=== PATIENT | female | born 1955 | race Caucasian/White ===

== ENCOUNTER 2024-06-10 22:53 | Observation (INO) | payer MEDICARE, BC, SELFPAY ==
[2024-06-10 22:54] VITALS: BP 178/66; PULSE 89; RESP 16; TEMP 36.1; O2SAT 99; BMI 24.8
--- NOTE | 2024-06-10 23:01 | ED_ITS ---
HPI - Fall General Time Seen by Provider: 23:02 Date Seen: 06/10/24 Chief Complaint: Fall/Minor Trauma Stated Complaint: fall Time Seen by Provider: 06/10/24 23:01 Source: patient, family, RN notes reviewed and old records reviewed Mode of arrival: ambulatory Limitations: no limitations History of Present Illness HPI Narrative: Mago is a very pleasant 69-year-old female previously healthy with a history of occasional vertigo who comes to the emergency room [facility] for evaluation regarding a fall. Mago was noted to have been with her jil. He states that he went to plug in his phone and she went to the bathroom any suddenly heard a fall. Notes that she hit the back of her head. Following that she has been vomiting and preferring to keep her eyes closed. Mago is answering questions with yes or no and seems to be appropriate but is unable to elaborate on what she is feeling right now. She denies any other pain except for the pain in the back of her head where she hit the ground. She denies any neck pain. Mago's Yovany tells me that she has occasionally had problems with vertigo but does not know if that is the problem tonight. Mago denies numbness or tingling. She did have a few alcoholic drinks jil. She had given blood earlier in the day. Mago denies chest pain shortness of breath, abdominal pain. She does feel better after vomiting. I do call a TT a based on her post fall symptoms. Related Data Home Medications ?Medication ?Instructions ?Recorded ?Confirmed alfalfa 250 mg tablet 250 mg PO QDAY 06/07/22 06/10/24 cholecalciferol (vitamin D3) 10 10 mcg PO QDAY 06/07/22 06/10/24 mcg (400 unit) capsule vitamin B complex 1 cap PO QDAY 06/07/22 06/10/24 zinc sulfate 50 mg zinc (220 mg) 50 mg PO QDAY 06/07/22 06/10/24 capsule (Orazinc) Allergies Allergy/AdvReac Type Severity Reaction Status Date / Time Sulfa (Sulfonamide Allergy Intermediate Hives, Rash Verified 06/10/24 23:00 Antibiotics) tetracycline Allergy Intermediate Hives, Rash Verified 06/10/24 23:00 Review of Systems Status of ROS: Reports: unobtainable due to mental status Narrative: Basic review of systems is negative. No complaints of arm back or leg pain. Const: Denies: fever, chills or fatigue Endo: Denies: fatigue PFSH [facility] Social History Smoking Status: Never smoker Do you use any of these nicotine containing products: None Second hand tobacco smoke exposure: No How often do you have a drink containing alcohol: never AUDIT-C Alcohol total score: 0 Non-prescribed substance use: denies use service: No Exam Narrative: Exam Narrative: Airway is open Breathing is easy Circulation no obvious bleeding Disability-GCS is 14 as she does not appear to be her normal interactive self. She is abating commands and answering in short sentences. I do have Mago open her eyes. Her pupils are small at approximately 1.5 mm and are not reacting at this time. Her EOM is full. Head is with a soft tissue swelling on the occipital area. TMs bilaterally with no fluid line. Oral cavity with moist mucous membranes. The nurses are cleaning her up as she has has vomit on her blankets. Abdomen is soft nontender. Heart with regular rate and rhythm and lungs are clear. She is able to move her extremities. Sensation does appear to be intact. Palpation on her back does not yield any tenderness. No nystagmus. Const: Vital Signs, click to edit/add: Vital Signs - 24 hr 06/10/24 22:54 06/10/24 23:16 06/10/24 23:17 Temperature 96.9 F L Pulse Rate 82 78 Pulse Rate [Pulse Oximeter] 89 Respiratory Rate 16 Blood Pressure 153/98 H Blood Pressure [Ri ght Upper Arm] 178/66 H Pulse Oximetry 99 97 98 Oxygen Delivery Me thod Room Air 06/10/24 23:48 06/10/24 23:49 06/11/24 00:00 Temperature Pulse Rate 93 92 86 Pulse Rate [Pulse Oximeter] Respiratory Rate Blood Pressure Blood Pressure [Ri ght Upper Arm] Pulse Oximetry 100 100 100 Oxygen Delivery Me thod 06/11/24 00:05 06/11/24 00:15 06/11/24 00:30 Temperature Pulse Rate 84 85 82 Pulse Rate [Pulse Oximeter] Respiratory Rate Blood Pressure Blood Pressure [Ri ght Upper Arm] Pulse Oximetry 99 98 99 Oxygen Delivery Me thod 06/11/24 00:45 06/11/24 01:07 06/11/24 01:09 Temperature Pulse Rate 83 89 83 Pulse Rate [Pulse Oximeter] Respiratory Rate Blood Pressure 132/97 H Blood Pressure [Ri ght Upper Arm] Pulse Oximetry 99 97 97 Oxygen Delivery Me thod 06/11/24 01:15 06/11/24 01:30 Temperature Pulse Rate 86 90 Pulse Rate [Pulse Oximeter] Respiratory Rate Blood Pressure Blood Pressure [Ri ght Upper Arm] Pulse Oximetry 98 97 [facility] provider has reviewed patient's vital signs: yes Course Course ED Course: Differential diagnosis includes but is not limited to orthostatic hypotension, cardiac arrhythmia, stroke, closed head injury, subarachnoid bleed. Will place IV give 1 L of normal saline as well as Zofran 4 mg IV. Patient will have CT of the head neck along with angio of the head neck as she has what appears to be persistent dizziness. Will check CBC, comprehensive, CRP, troponin, magnesium as well. Reevaluation(s) Reevaluation #1: Patient is feeling better and has not had any further vomiting. She is thirsty. Head and cervical spine without evidence of injury. EKG is reassuring with sinus rhythm. No evidence of arrhythmia on the heart monitor. Potassium is low at 3.2. Hemoglobin is 10.7 which is a significant change from the hemoglobin prior to giving blood of greater than 14. Will have redraw of hemoglobin to ensure correct value. Reevaluation #2: Patient is much more interactive and seems to be back to her usual personality. She is receptive to Tylenol 650 mg p.o. for headache. Potassium 50 mEq is also brought for her. Do realize that she had just recently been nauseated so she may sit this slowly. Vital Signs Vital signs: Initial Vital Signs Temperature 96.9 F L 06/10/24 22:54 Temperature Source Temporal Artery Scan 06/10/24 22:54 Pulse Rate 89 06/10/24 22:54 Respiratory Rate 16 06/10/24 22:54 Blood Pressure 178/66 H 06/10/24 22:54 Blood Pressure Mean 103 06/10/24 22:54 Blood Pressure Position Supine 06/10/24 22:54 Pulse Oximetry 99 06/10/24 22:54 Oxygen Delivery Method Room Air 06/10/24 22:54 Vital Signs Temperature 96.9 F L 06/10/24 22:54 Pulse Rate 89 06/10/24 22:54 Respiratory Rate 16 06/10/24 22:54 Blood Pressure 178/66 H 06/10/24 22:54 Pulse Oximetry 99 06/10/24 22:54 Oxygen Delivery Method Room Air 06/10/24 22:54 Temperature 96.9 F L 06/10/24 22:54 Pulse Rate 90 06/11/24 01:30 Respiratory Rate 16 06/10/24 22:54 Blood Pressure 132/97 H 06/11/24 01:09 Pulse Oximetry 97 06/11/24 01:30 Oxygen Delivery Method Room Air 06/10/24 22:54 Medications Administered Medications: Generic Name Dose Route Start Last Admin Trade Name Freq PRN Reason Stop Dose Admin Acetaminophen 650 mg 06/11/24 01:57 06/11/24 02:08 Acetaminophen 325 Mg Tablet PO 06/11/24 01:58 650 mg ONCE ONE Administration Potassium Bicarbonate 50 meq 06/11/24 01:57 06/11/24 02:08 Potassium Bicarb 25 Meq Effervescent Tab PO 06/11/24 01:58 50 meq ONCE ONE Administration Discontinued Medications Generic Name Dose Route Start Last Admin Trade Name Freq PRN Reason Stop Dose Admin Sodium Chloride 1,000 mls @ 1,000 mls/hr 06/10/24 23:13 06/11/24 01:10 0.9 % Sodium Chloride 1000 Ml IV 06/11/24 00:12 Infused .Q1H SKYLAR Infusion Ondansetron HCl 4 mg 06/10/24 23:11 06/10/24 23:28 Ondansetron 2 Mg/Ml Inj IVP 06/10/24 23:12 4 mg ONCE ONE Administration MDM - Fall MDM Narrative Medical decision making narrative: 1. Syncope-patient notes feeling lightheaded prior to this happening but then has no recollection of the fall after the fall, ambulance arrival. Her notes no reports of seizure-like activity. She was unresponsive for a period of time after the fall. She was not very interactive upon her initial arrival and had been vomiting. She is now back to her old self but appearing very fatigued. Patient had had some alcoholic drinks but alcohol here in the ER is only 0.02. She has not been ill. She really has no urinary tract symptoms although her urine does suggest the possibility of UTI. 2. Anemia-hemoglobin 10.7 with repeat value pending. According to Mago lozoya hemoglobin had been greater than 14 prior to giving blood. There was no process for double bagging a today. She has not had problems with giving blood in the past. Repeat pending 3. Concussion-patient noted to have headache. Given her appearance in the ED which is at least a 25-30 minute ride from her home near [place] I do believe she has suffered a concussion. I recommend no work this week. 4. Disposition-admit under the care of [facility] hospitalist. Medical Records Attestation: I reviewed the patient's medical records. Lab Data Attestation: I reviewed the patient's lab results. Labs: Lab Results 06/10/24 06/10/24 06/11/24 Range/Units 23:11 23:15 01:03 WBC 9.93 (4.50-11.00) K/uL RBC 4.16 (4.00-5.20) m/uL Hgb 10.7 L (12.0-16.0) gm/dL Hct 33.6 (33.0-51.0) % MCV 81 (80-100) fL MCH 26 (26-34) pg MCHC 32 (32-36) gm/dL RDW Coeff of Ronda 14.7 (11.5-15.5) % Plt Count 505 H (140-440) K/uL Neut % (Auto) 54.1 (42.0-72.0) % Lymph % (Auto) 37.4 (20-44) % Mcdowell % (Auto) 5.8 (0.0-11.0) % Eos % (Auto) 1.9 (0.0-7.0) % Baso % (Auto) 0.7 (0.0-3.0) % Neut # (Auto) 5.37 (1.7-7.0) K/uL Lymph # (Auto) 3.71 H (0.90-2.90) K/uL Mcdowell # (Auto) 0.60 (0.00-0.90) K/UL Eos # (Auto) 0.19 (0.00-0.50) K/uL Baso # (Auto) 0.07 (0.00-0.30) K/uL Abs Immat Gran (auto) 0.01 (0.00-0.30) K/uL Imm/Tot Granulo (auto) 0.1 % Sodium 135 (135-149) mmol/L Potassium 3.2 L (3.6-5.1) mmol/L Chloride 103 (96-114) mmol/L Carbon Dioxide 21 (20-32) mmol/L Anion Gap 11 (7-15) mEq/L BUN 14 (7-30) mg/dL Creatinine 0.7 (0.5-1.5) mg/dL Estimated Creat Clear 43.30 Estimated GFR 93 ml/min Glucose 115 (60-115) mg/dL Calcium 8.9 (8.4-10.6) mg/dL Magnesium 2.0 (1.5-2.6) mg/dL Total Bilirubin 0.7 (0.1-1.5) mg/dL AST 22 (12-35) U/L ALT 15 (4-35) U/L Alkaline Phosphatase 80 (40-150) U/L C-Reactive Protein < 0.5 L (0.5-1.0) mg/dL Total Protein 6.7 (6.0-8.3) g/dL Albumin 4.2 (3.3-5.0) g/dL Urine Color Yellow (Yellow) Urine Appearance Clear (Clear) Urine pH 7.0 (5.0-8.5) Ur Specific [place] 1.010 (1.000-1.030) Urine Protein Negative (Negative) Urine Glucose (UA) Negative (Negative) Urine Ketones Negative (Negative) Urine Blood Negative (Negative) Urine Nitrite Negative (Negative) Urine Bilirubin Negative (Negative) Urine Urobilinogen 0.2 (0.2-1.0) Ur Leukocyte Esterase 1+ A (Negative) Urine RBC 0-2 (0-2) Urine WBC 5-10 A (0-5) Ur Squamous Epith Cells Few (None-Few) Urine Bacteria Few A (None) Ethyl Alcohol 0.02 (0.01-0.03) % SARS-CoV-2 (PCR) Negative SARS-CoV-2 (Negative) POC Troponin I 0.00 L (0.01-0.04) ng/ml Imaging Data CT scan - head: Attestation: I have reviewed the pertinent imaging results. My impression: No evidence of acute bleed. Radiologist's impression: No CT evidence of acute intracranial hemorrhage, territorial infarct, hydrocephalus, or mass effect. Brain parenchymal volume is grossly within normal limits for patient`s stated age. Prominent right parietal soft tissue hematoma without associated calvarial fracture. Paranasal sinuses and mastoid air cells are grossly well ventilated. IMPRESSION: 1. No acute intracranial abnormality. 2. Prominent right parietal scalp hematoma without underlying calvarial frac ture. Cervical spine CT: Attestation: I have reviewed the pertinent imaging results. My impression: I do not note any acute findings Radiologist's impression: Vertebrae: No acute fracture or suspicious osseous lesion. The cervical vertebral bodies maintain their normal heights with slight reversal of the cervical lordosis. Mild retrolisthesis is present at C6-C7. Discs and facet joints: Multilevel degenerative disc disease with multilevel disc space height loss and partial ankylosis across C5-C6. Disc bulge contributing to probable moderate canal stenosis at C6-C7. Multilevel facet arthropathy most prominent at C3-C4. Extraspinal findings: Prevertebral soft tissues, visualized airway, and visualized lungs are unremarkable. IMPRESSION: 1. No acute cervical spine fracture. 2. Multilevel spondylosis and degenerative disc disease, as above. Chest x-ray: Attestation: I have reviewed the pertinent imaging results. My impression: No obvious abnormality Radiologist's impression: Cardiovasculature and mediastinum: Heart size is normal. Unremarkable mediastinum. Lungs and pleural spaces: Lungs are clear. No sign of infiltrate or mass. No sign of pleural effusion. No pneumothorax. Bones and soft tissues: No significant findings. IMPRESSION: No acute cardiopulmonary abnormality. ECG Data Attestation: I personally reviewed and interpreted this ECG as follows: ECG interpretation date: 06/10/24 Interpretation: EKG by my read shows sinus rhythm at a rate of [address] or T-wave changes. QT and ND intervals within normal limits. Discharge Plan Discharge Clinical Impression: Syncope, Concussion, Acute hypokalemia Patient Disposition: Admitted As Observation Condition: Improved
--- NOTE | 2024-06-10 23:11 | CRLHL7_ITS ---
For Patients: As a result of the Cures Act, medical imaging exams and procedure reports are released immediately into your electronic medical record. You may view this report before your referring provider. If you have questions, please contact your health care provider. INDICATION: Fall. TECHNIQUE: CT cervical spine without contrast. COMPARISON: None. FINDINGS: Vertebrae: No acute fracture or suspicious osseous lesion. The cervical vertebral bodies maintain their normal heights with slight reversal of the cervical lordosis. Mild retrolisthesis is present at C6-C7. Discs and facet joints: Multilevel degenerative disc disease with multilevel disc space height loss and partial ankylosis across C5-C6. Disc bulge contributing to probable moderate canal stenosis at C6-C7. Multilevel facet arthropathy most prominent at C3-C4. Extraspinal findings: Prevertebral soft tissues, visualized airway, and visualized lungs are unremarkable. IMPRESSION: 1. No acute cervical spine fracture. 2. Multilevel spondylosis and degenerative disc disease, as above. Please note that all CT scans at this facility use dose modulation, iterative reconstruction, and/or weight-based dosing when appropriate to reduce radiation dose to as low as reasonably achievable. Dictated by Harmeet Hayden MD @ 06/11/2024 12:50:28 AM (Electronically Signed)
--- NOTE | 2024-06-10 23:11 | CRLHL7_ITS ---
For Patients: As a result of the Century Cures Act, medical imaging exams and procedure reports are released immediately into your electronic medical record. You may view this report before your referring provider. If you have questions, please contact your health care provider. INDICATION: Fall with vomiting. TECHNIQUE: CT head without contrast. COMPARISON: None. FINDINGS: No CT evidence of acute intracranial hemorrhage, territorial infarct, hydrocephalus, or mass effect. Brain parenchymal volume is grossly within normal limits for patient`s stated age. Prominent right parietal soft tissue hematoma without associated calvarial fracture. Paranasal sinuses and mastoid air cells are grossly well ventilated. IMPRESSION: 1. No acute intracranial abnormality. 2. Prominent right parietal scalp hematoma without underlying calvarial fracture. Please note that all CT scans at this facility use dose modulation, iterative reconstruction, and/or weight-based dosing when appropriate to reduce radiation dose to as low as reasonably achievable. Dictated by Harmeet Hayden MD @ 06/11/2024 12:36:01 AM (Electronically Signed)
--- NOTE | 2024-06-10 23:13 | CRLHL7_ITS ---
For Patients: As a result of the Century Cures Act, medical imaging exams and procedure reports are released immediately into your electronic medical record. You may view this report before your referring provider. If you have questions, please contact your health care provider. INDICATION: Syncope. TECHNIQUE: Chest 1 views. COMPARISON: None. FINDINGS: Cardiovasculature and mediastinum: Heart size is normal. Unremarkable mediastinum. Lungs and pleural spaces: Lungs are clear. No sign of infiltrate or mass. No sign of pleural effusion. No pneumothorax. Bones and soft tissues: No significant findings. IMPRESSION: No acute cardiopulmonary abnormality. Dictated by Harmeet Hayden MD @ 06/11/2024 12:51:38 AM (Electronically Signed)
--- NOTE | 2024-06-10 23:13 | CRLHL7_ITS ---
For Patients: As a result of the Century Cures Act, medical imaging exams and procedure reports are released immediately into your electronic medical record. You may view this report before your referring provider. If you have questions, please contact your health care provider. INDICATION: Syncope, vertigo. TECHNIQUE: CTA head with contrast bolus tracking, 3D angiographic rendering using maximum intensity projection (MIP) and images permanently archived. FINDINGS: There is minor intracranial atherosclerotic disease. There is normal opacification of the intracranial vasculature. There is no large vessel occlusion. No aneurysm is identified. IMPRESSION: No acute intracranial abnormality at CTA. Please note that all CT scans at this facility use dose modulation, iterative reconstruction, and/or weight-based dosing when appropriate to reduce radiation dose to as low as reasonably achievable. Dictated by Sergey Hollis MD @ 06/11/2024 10:48:04 AM (Electronically Signed)
--- NOTE | 2024-06-10 23:13 | CRLHL7_ITS ---
For Patients: As a result of the Century Cures Act, medical imaging exams and procedure reports are released immediately into your electronic medical record. You may view this report before your referring provider. If you have questions, please contact your health care provider. INDICATION: Syncope, vertigo. TECHNIQUE: CTA neck with contrast bolus tracking, 3D angiographic rendering using maximum intensity projection (MIP) and images permanently archived. FINDINGS: There is minor carotid atherosclerosis. There is no significant carotid artery stenosis or dissection. There is no significant vertebral artery stenosis or dissection. The soft tissues of the neck are within normal limits. The cervical spine is in normal alignment. Degenerative changes are noted in the cervical spine. The C5-6 vertebrae are fused. IMPRESSION: No significant carotid or vertebral artery stenosis or dissection. Please note that all CT scans at this facility use dose modulation, iterative reconstruction, and/or weight-based dosing when appropriate to reduce radiation dose to as low as reasonably achievable. Dictated by Sergey Hollis MD @ 06/11/2024 10:49:55 AM (Electronically Signed)
[2024-06-10 23:16] VITALS: PULSE 82; O2SAT 97
[2024-06-10 23:17] VITALS: BP 153/98; PULSE 78; O2SAT 98
[2024-06-10] MEDS: ONDANSETRON 2 MG/ML inj 4 MG IVP (23:28)
[2024-06-10 23:34] LABS: Basophils Absolute Auto 0.07 K/uL (0.00-0.30); Basophils Percent Auto 0.7 % (0.0-3.0); Eosinophils Absolute Auto 0.19 K/uL (0.00-0.50); Eosinophils Percent Auto 1.9 % (0.0-7.0); Hematocrit 33.6 % (33.0-51.0); Hemoglobin* 10.7 gm/dL (12.0-16.0); Immature Granulocytes Abs Auto 0.01 K/uL (0.00-0.30); Immature Granulocytes Pct Auto 0.1 %; Lymphocytes Absolute Auto 3.71 K/uL (0.90-2.90); Lymphocytes Percent Auto 37.4 % (20-44); Mean Corpuscular HGB Conc 32 gm/dL (32-36); Mean Corpuscular Hemoglobin 26 pg (26-34); Mean Corpuscular Volume 81 fL (80-100); Monocytes Percent Auto 5.8 % (0.0-11.0); Neutrophils Absolute Auto 5.37 K/uL (1.7-7.0); Neutrophils Percent Auto 54.1 % (42.0-72.0); Platelet Count* 505 K/uL (140-440); RDW Coefficient of Variation % 14.7 % (11.5-15.5); Red Blood Count 4.16 m/uL (4.00-5.20); White Blood Count* 9.93 K/uL (4.50-11.00)
[2024-06-10 23:37] LABS: Albumin* 4.2 g/dL (3.3-5.0); Chloride* 103 mmol/L (96-114); Sodium* 135 mmol/L (135-149)
[2024-06-10 23:38] LABS: Potassium* 3.2 mmol/L (3.6-5.1); Slide Review Reflex No
[2024-06-10 23:40] LABS: Alkaline Phosphatase* 80 U/L (40-150); Anion Gap 11 mEq/L (7-15); Aspartate Amino Transferase* 22 U/L (12-35); Bilirubin Total* 0.7 mg/dL (0.1-1.5); Carbon Dioxide* 21 mmol/L (20-32); Creatinine* 0.7 mg/dL (0.5-1.5); Estimated Glomerular Filt Rate 93 ml/min; Total Protein* 6.7 g/dL (6.0-8.3)
[2024-06-10 23:41] LABS: Alanine Aminotransferase* 15 U/L (4-35); Blood Urea Nitrogen* 14 mg/dL (7-30); Calcium* 8.9 mg/dL (8.4-10.6); Glucose* 115 mg/dL (60-115)
[2024-06-10 23:45] LABS: C Reactive Protein* < 0.5 mg/dL (0.5-1.0)
[2024-06-10] MEDS: 0.9 % SODIUM CHLORIDE 1000 ml 1,000 ML IV (23:45)
[2024-06-10 23:48] VITALS: PULSE 93; O2SAT 100
[2024-06-10 23:49] VITALS: PULSE 92; O2SAT 100
[2024-06-10 23:55] LABS: Ethanol* 0.02 % (0.01-0.03); SARS PCR* Negative SARS-CoV-2 (Negative)
[2024-06-11] VITALS (16 sets, daily range): BP systolic 132–169; BP diastolic 70–97; PULSE 72–90; RESP 16–18; TEMP 36.6–36.8; O2SAT 95–100
[2024-06-11 01:11] LABS: Appearance Urine Clear (Clear); Bilirubin Urine Negative (Negative); Blood Urine Negative (Negative); Color Urine Yellow (Yellow); Glucose Urine Negative (Negative); Ketones Urine Negative (Negative); Leukocyte Esterase Urine 1+ (Negative); Nitrite Urine Negative (Negative); Protein Urine Negative (Negative); Urobilinogen Urine 0.2 (0.2-1.0)
[2024-06-11 01:21] LABS: Bacteria Urine Few; RBC Urine 0-2 (0-2); Squamous Epithelial Cell Urine Few (None-Few)
[2024-06-11] MEDS: POTASSIUM BICARB 25 MEQ EFFERVESCENT TAB 50 MEQ PO (02:08)
[2024-06-11] MEDS: ACETAMINOPHEN 325 MG TABLET 650 MG PO (02:08)
[2024-06-11 02:14] LABS: Hemoglobin* 10.3 gm/dL (12.0-16.0)
[2024-06-11] MEDS: 0.9 % SODIUM CHLORIDE 1000 ml 1,000 ML 125 ML IV (03:58)
--- NOTE | 2024-06-11 06:11 | W.PM.THH&P_ITS ---
Telehealth- H&P: HPI History of Present Illness Date Seen: 06/11/24 Chief complaint: fall Narrative: Mago Samson is seen as an Interactive Telehealth visit. 69-year-old female who has no past medical history presents the hospital after syncope. Patient earlier donated blood. Patient stated that after she donated blood she did not feel the same. She felt weak and lightheaded. Patient denies chest pain. Patient denies any nausea vomiting. While she was in her bathroom, she lost consciousness and hit her head on the side of the tub. Patient's tried to wake her up, the patient did not wake up. She was unresponsive. EMS was contacted. When EMS arrived, the patient still was unresponsive. She is hemodynamically stable. Patient was brought to the emergency room. While en route, she became nauseous and was arousable. She awoke. In the ER, she underwent CT of her head which showed no acute intracranial abnormality but a prominent right parietal scalp hematoma without any skull fracture. Chest x-ray was normal and did not show any acute pulmonary abnormality. Patient's EKG is negative. Blood pressure was 154/83 pulse is 75. Respiratory rate was 18. Afebrile, 96% on room air. Patient did undergo CT of her head. Official report is pending at the time of evaluation. Pending extensive discussion with the patient. Patient did not have any postictal phase. Patient did not bite her tongue. There was no concerns for any bladder or bowel incontinence. Review of Systems Status of ROS: Reports: 10 or more systems reviewed and unremarkable except as noted in History and below Const: Denies: fever or chills Eyes: Denies: change in vision or blurry vision Cardio: Reports: lightheadedness; Denies: chest pain, palpitations, edema, swelling of feet/ankles or shortness of breath with exertion Resp: Denies: shortness of breath GI: Denies: abdominal pain Musculo: Denies: back pain Neuro: Reports: headache and dizziness [facility] Social History What is your current living situation?: I presently have a place to live Problems where you live: no known problems Problems where you live details: none In the past 12 months, utilities in danger of being shut off: no In past 12 months, lack of transportation kept you from medical appts, meetings, work, or getting things needed for daily living: no In the past 12 mos, have been you worried that your food would run out before you had money to buy more?: never true In the past 12 mos, the food you bought just didn't last and you didn't have money to buy more?: never true Smoking Status: Never smoker Do you use any of these nicotine containing products: None Second hand tobacco smoke exposure: No How often do you have a drink containing alcohol: 4 or more times a week Alcohol type: beer How many standard drinks containing alcohol do you have on a typical day: 3 or 4 AUDIT-C Alcohol total score: 5 Non-prescribed substance use: denies use Caffeine: No How often does anyone, including family, friends and others, physically hurt you : never How often does anyone, including family, friends and others, insult or talk down to you: never How often does anyone, including family, friends and others, threaten you with harm: never How often does anyone, including family, friends and others, scream or curse at you: never service: No Meds Home Medications and Allergies Home Medications ?Medication ?Instructions ?Recorded ?Confirmed ?Type alfalfa 250 mg tablet 250 mg PO QDAY 06/07/22 06/10/24 History cholecalciferol (vitamin D3) 10 10 mcg PO QDAY 06/07/22 06/10/24 History mcg (400 unit) capsule vitamin B complex 1 cap PO QDAY 06/07/22 06/10/24 History zinc sulfate 50 mg zinc (220 mg) 50 mg PO QDAY 06/07/22 06/10/24 History capsule (Orazinc) Allergies Allergy/AdvReac Type Severity Reaction Status Date / Time Sulfa (Sulfonamide Allergy Intermediate Hives, Rash Verified 06/11/24 04:29 Antibiotics) tetracycline Allergy Intermediate Hives, Rash Verified 06/11/24 04:29 Exam Narrative Exam Narrative: Physical Exam GENERAL: ?vital signs reviewed, well developed and nourished, in no distress HEENT: pupils are equal round and reactive to light, extraocular movements are grossly within normal limits and oral mucosa is moist. NECK: Supple without lymphadenopathy or thyromegaly according to nursing staff examination observation HEART: Regular rate and rhythm without any rubs, murmurs, or gallops. LUNGS: Clear to auscultation bilaterally with good air movement throughout ABDOMEN: Observation from nurse assisted exam, abdomen appears soft, nontender, and nondistended with Positive bowel sounds noted. EXTREMITIES: Strength and sensation is observed to be grossly within normal limits in the upper and lower extremities.? No focal strength deficit is observed. SKIN:? Observed warm and dry with color normal Const Vital Signs, click to edit/add: Vital Signs - 24 hr 06/10/24 22:54 06/10/24 23:16 06/10/24 23:17 Temperature 96.9 F L Pulse Rate 82 78 Pulse Rate [Pulse Oximeter] 89 Pulse Rate [Right Pulse Oximeter] Respiratory Rate 16 Blood Pressure 153/98 H Blood Pressure [Right Arm] Blood Pressure [Right Upper Arm] 178/66 H Pulse Oximetry 99 97 98 Oxygen Delivery Method Room Air 06/10/24 23:48 06/10/24 23:49 06/11/24 00:00 Temperature Pulse Rate 93 92 86 Pulse Rate [Pulse Oximeter] Pulse Rate [Right Pulse Oximeter] Respiratory Rate Blood Pressure Blood Pressure [Right Arm] Blood Pressure [Right Upper Arm] Pulse Oximetry 100 100 100 Oxygen Delivery Method 06/11/24 00:05 06/11/24 00:15 06/11/24 00:30 Temperature Pulse Rate 84 85 82 Pulse Rate [Pulse Oximeter] Pulse Rate [Right Pulse Oximeter] Respiratory Rate Blood Pressure Blood Pressure [Right Arm] Blood Pressure [Right Upper Arm] Pulse Oximetry 99 98 99 Oxygen Delivery Method 06/11/24 00:45 06/11/24 01:07 06/11/24 01:09 Temperature Pulse Rate 83 89 83 Pulse Rate [Pulse Oximeter] Pulse Rate [Right Pulse Oximeter] Respiratory Rate Blood Pressure 132/97 H Blood Pressure [Right Arm] Blood Pressure [Right Upper Arm] Pulse Oximetry 99 97 97 Oxygen Delivery Method 06/11/24 01:15 06/11/24 01:30 06/11/24 02:45 Temperature 98.2 F Pulse Rate 86 90 Pulse Rate [Pulse Oximeter] Pulse Rate [Right Pulse Oximeter] Respiratory Rate 16 Blood Pressure Blood Pressure [Right Arm] 169/90 H Blood Pressure [Right Upper Arm] Pulse Oximetry 98 97 95 Oxygen Delivery Method Room Air 06/11/24 03:20 06/11/24 03:23 06/11/24 04:10 Temperature 98.2 F Pulse Rate 75 Pulse Rate [Pulse Oximeter] Pulse Rate [Right Pulse Oximeter] 75 Respiratory Rate 18 Blood Pressure Blood Pressure [Right Arm] 154/88 H Blood Pressure [Right Upper Arm] Pulse Oximetry 97 96 Oxygen Delivery Method Room Air Room Air Hospitalist - H&P: Result Labs Labs: Short CBC 06/10/24 06/11/24 Range/Units 23:15 02:05 WBC 9.93 (4.50-11.00) K/uL Hgb 10.7 L 10.3 L (12.0-16.0) gm/dL Hct 33.6 (33.0-51.0) % Plt Count 505 H (140-440) K/uL BMP 06/10/24 23:15 Sodium 135 Potassium 3.2 L Chloride 103 Carbon Dioxide 21 BUN 14 Creatinine 0.7 Glucose 115 Calcium 8.9 Liver Function 06/10/24 Range/Units 23:15 Total Bilirubin 0.7 (0.1-1.5) mg/dL AST 22 (12-35) U/L ALT 15 (4-35) U/L Alkaline Phosphatase 80 (40-150) U/L Albumin 4.2 (3.3-5.0) g/dL Urine 06/11/24 Range/Units 01:03 Urine Color Yellow (Yellow) Urine Appearance Clear (Clear) Urine pH 7.0 (5.0-8.5) Ur Specific [place] 1.010 (1.000-1.030) Urine Protein Negative (Negative) Urine Glucose (UA) Negative (Negative) Assessment and Plan Assessment and plan (1) Concussion: Status: Acute (2) Syncope: Status: Acute Plan Assessment plan Syncope this patient has syncope which he would assume would be most likely associate with hypovolemia. She just donated a pint of blood earlier in the day. She attributed feeling weak afterwards. Her syncopal episode likely was related to hypovolemia associated with that. After fluid resuscitation she felt a lot better. However she is 69 years old and although she does not have any risk factors for coronary artery disease, the age itself is a risk factor. Therefore I will order an echocardiogram, EKG, labs in the a.m. Continue telemetry. Postconcussive syndrome: Patient had markedly abnormal experience of syncope after she hit her head on the tub. She had associated nausea and headache. She has hematoma. I suspect she likely will have postconcussive syndrome. Treatment will include Tylenol. If she has recurrent episodes of nausea, she could try a tricyclic antidepressant for a period of time. Telehealth Visit Today's History and Physical is provided via interactive telehealth by Dr. Danilo Flores MD. Patient is located at [facility]. Provider is located at [facility]. Nursing staff assisted with the patient's examination. The visit being done today meets criteria for a telehealth visit and the patient or patient's parent and/or gaurdian is aware the visit is a telehealth visit. Camera Start Time 3 AM Camera End Time 3:20 AM Telehealth: Statement Statement Telehealth Visit: Today's History and Physical is provided via interactive telehealth by Danilo millan MD.? Patient is located at [facility].? Provider is located at [facility].? Nursing staff assisted with the patient's exam. The visit being done today meets criteria for a telehealth visit and the patient or patient?s parent/guardian is aware the visit is a telehealth visit.
--- NOTE | 2024-06-11 06:23 | PC.NURSE ---
Admission @ 230: The patient is A&Ox4, neuro assessment was completed, no deficits were noted. Although the patient does report sensitivity to light. Upon palpation she is noted to have a R hematoma on the back of her head from the fall. No signs of laceration. SBA to BR due to fall last night. VS noted to be hypertensive. N/S infusing at 125 hr. Regular diet. No belongings upon admission due to arrival by EMS. Thai light within reach. No reports of pain, other than some discomfort when she lays on her hematoma on the R side. Cielo NOEL BSN.
--- NOTE | 2024-06-11 08:00 | CRLHL7_ITS ---
For Patients: As a result of the Century Cures Act, medical imaging exams and procedure reports are released immediately into your electronic medical record. You may view this report before your referring provider. If you have questions, please contact your health care provider. Indication: SYNCOPE, FALL ON 06/10/24, LOC Technique: CT angiogram of the chest was performed for evaluation of pulmonary embolism. 95 mL of Isovue 370 intravenous contrast was administered. Comparison: 06/10/2024 Findings: CARDIOVASCULAR: Diagnostic quality: Contrast opacification of the pulmonary arterial circulation is adequate for assessment of pulmonary embolism. Study is not significantly limited by respiratory motion artifact. Pulmonary arteries: No filling defects to suggest pulmonary embolism. Not enlarged. Heart: No interventricular septal deviation. Normal in size. Mild coronary artery calcification. No significant valvular calcification. Pericardium: No pericardial effusion. Thoracic aorta: Minimal calcification. Normal cervical branching. REMAINING CHEST: Medical devices: None. Thyroid: Normal. Lymph nodes: No supraclavicular, axillary, mediastinal, or hilar lymphadenopathy. Other mediastinal structures: No significant abnormality. Lung parenchyma: Moderate biapical pleural-parenchymal scarring. Airways: No significant abnormality. Pleura: No significant abnormality. Chest wall: No significant abnormality. Upper abdomen: Likely sludge within the gallbladder. Musculoskeletal: Mild degenerative changes of the visualized spine. Impression: No acute pulmonary embolism. Please note that all CT scans at this facility use dose modulation, iterative reconstruction, and/or weight-based dosing when appropriate to reduce radiation dose to as low as reasonably achievable. Dictated by Alpesh Sanders MD @ 06/11/2024 10:54:11 AM (Electronically Signed)
[2024-06-11] MEDS: SODIUM CHLORIDE 0.9 % (FLUSH) 10 ML SYRINGE 5 ML IVF (09:30)
--- NOTE | 2024-06-11 12:40 | PM.DS1 ---
DS: Providers Provider Date Seen: 06/11/24 Date of admission: 06/11/24 02:25 Primary care physician: Fani Martínez CNP Admitting Clinician: Danilo Flores MD Consults: 06/11/24 03:28 Consult to Physical Therapy [CONS] Routine Comment: Reason(s) for PT Consult:: Balance Assessment Any Restrictions?:: No Restrictions 06/11/24 03:38 Consult to Physical Therapy [CONS] Routine Comment: Reason(s) for PT Consult:: Recent Falls Any Restrictions?:: No Restrictions Attending Physician on discharge: VON QUIROGA, [facility] Date of Discharge: 06/11/24 DS: Diagnosis Discharge Diagnosis (1) Syncope: Status: Acute Problem details: Single syncopal episode with trauma, hematoma scalp. Brief period of unresponsiveness. CT head/cervical spine, CTA neck/head without acute intracranial or cervical spine abnormalities, notable for right parietal scalp hematoma, no fracture, no significant carotid or vertebral artery stenosis or dissection. CTA chest without acute PE. Admitted overnight for observation. Telemetry unremarkable. No significant electrolyte abnormality. No obvious infectious etiology. UC pending. PT assessed without concerning findings, need for ongoing rehab. Echocardiogram to be completed prior to discharge - pending. Does report a 3 week history of vague lightheadedness (without vertigo), increasing sense of shortness of breath when climbing up stairs carrying objects. Reports occasional intermittent palpitations at bedtime. Admits to daily alcohol use 3-5 beers. (2) Concussion: Status: Acute Problem details: With loss of consciousness. Right parietal scalp hematoma. Rest, avoid strenuous activity. Close outpatient follow-up with PCP. (3) Palpitations: Status: Acute Problem details: Reports intermittent episodes at bedtime though none prior to syncopal episode. Overnight telemetry unremarkable. Ziopatch at discharge. Outpatient follow-up with PCP (4) Alcohol use disorder: Status: Acute Problem details: Admits to 3-5 beers daily. Discussed risks, encourage cessation. (5) Vertigo: Status: Acute Problem details: Reports 30+ year history of vertigo. Has recently had vague lightheadedness, nothing like her vertigo episodes. PT unable to provoke. (6) Acute hypokalemia: Status: Acute Problem details: Potassium 3.2 on admission, received oral supplement prior to discharge. Outpatient follow-up PCP DS: Summary Hospital Course Hospital Course: [age] year old female was admitted to the medical floor for observation following syncopal episode. Course of care and details as noted above. Patient is discharged with Ziopatch. Will need close outpatient follow up for further work up. Avoid strenuous activity. Concussion monitoring. Discussed alcohol cessation. Remainder of chronic medical comorbidities were monitored and managed with home medications. Status at Discharge Functional status at discharge: independent ambulation Overall status at discharge: patient is back to baseline Time Spent with Patient Time attestation: Total time spent providing and/or coordinating discharge services: Time spent: Greater than 30 minutes Exam Narrative: Exam Narrative: PHYSICAL EXAM General: Pleasant, conversant, NAD Cardiovascular: RRR Pulmonary: No dyspnea Neurological: Alert, answering questions appropriately, no focal findings Skin: Warm, dry. Const: Vital Signs, click to edit/add: Vital Signs - 24 hr 06/10/24 22:54 06/10/24 23:16 06/10/24 23:17 Temperature 96.9 F L Pulse Rate 82 78 Pulse Rate [Pulse Oximeter] 89 Pulse Rate [Right Pulse Oximeter] Respiratory Rate 16 Blood Pressure 153/98 H Blood Pressure [Ri ght Arm] Blood Pressure [Ri ght Upper Arm] 178/66 H Pulse Oximetry 99 97 98 Oxygen Delivery Me thod Room Air 06/10/24 23:48 06/10/24 23:49 06/11/24 00:00 Temperature Pulse Rate 93 92 86 Pulse Rate [Pulse Oximeter] Pulse Rate [Right Pulse Oximeter] Respiratory Rate Blood Pressure Blood Pressure [Ri ght Arm] Blood Pressure [Ri ght Upper Arm] Pulse Oximetry 100 100 100 Oxygen Delivery Me thod 06/11/24 00:05 06/11/24 00:15 06/11/24 00:30 Temperature Pulse Rate 84 85 82 Pulse Rate [Pulse Oximeter] Pulse Rate [Right Pulse Oximeter] Respiratory Rate Blood Pressure Blood Pressure [Ri ght Arm] Blood Pressure [Ri ght Upper Arm] Pulse Oximetry 99 98 99 Oxygen Delivery Me thod 06/11/24 00:45 06/11/24 01:07 06/11/24 01:09 Temperature Pulse Rate 83 89 83 Pulse Rate [Pulse Oximeter] Pulse Rate [Right Pulse Oximeter] Respiratory Rate Blood Pressure 132/97 H Blood Pressure [Ri ght Arm] Blood Pressure [Ri ght Upper Arm] Pulse Oximetry 99 97 97 Oxygen Delivery Me thod 06/11/24 01:15 06/11/24 01:30 06/11/24 02:45 Temperature 98.2 F Pulse Rate 86 90 Pulse Rate [Pulse Oximeter] Pulse Rate [Right Pulse Oximeter] Respiratory Rate 16 Blood Pressure Blood Pressure [Ri ght Arm] 169/90 H Blood Pressure [Ri ght Upper Arm] Pulse Oximetry 98 97 95 Oxygen Delivery Me thod Room Air 06/11/24 03:20 06/11/24 03:23 06/11/24 04:10 Temperature 98.2 F Pulse Rate 75 Pulse Rate [Pulse Oximeter] Pulse Rate [Right Pulse Oximeter] 75 Respiratory Rate 18 Blood Pressure Blood Pressure [Ri ght Arm] 154/88 H Blood Pressure [Ri ght Upper Arm] Pulse Oximetry 97 96 Oxygen Delivery Me thod Room Air Room Air 06/11/24 07:56 06/11/24 08:25 06/11/24 12:04 Temperature 97.8 F 98.3 F Pulse Rate 74 Pulse Rate [Pulse Oximeter] Pulse Rate [Right Pulse Oximeter] 72 76 Respiratory Rate 16 16 Blood Pressure Blood Pressure [Ri ght Arm] 144/79 H 153/70 H Blood Pressure [Ri ght Upper Arm] Pulse Oximetry 96 100 Oxygen Delivery Me thod Room Air Room Air DS: Data Data Completed and Pending Pending studies at discharge: Final echocardiogram reading Labs on day of discharge: Labs from last 24 hours 06/11/24 06/11/24 06/11/24 02:05 01:03 00:00 WBC RBC Hgb 10.3 L Hct MCV MCH MCHC RDW Coeff of Ronda Plt Count Neut % (Auto) Lymph % (Auto) Mcmullen % (Auto) Eos % (Auto) Baso % (Auto) Neut # (Auto) Lymph # (Auto) Mcmullen # (Auto) Eos # (Auto) Baso # (Auto) Abs Immat Gran (auto) Imm/Tot Granulo (auto) Sodium Potassium Chloride Carbon Dioxide Anion Gap BUN Creatinine Estimated Creat Clear Estimated GFR Glucose Calcium Magnesium Total Bilirubin AST ALT Alkaline Phosphatase C-Reactive Protein Total Protein Albumin TSH 3.650 Urine Color Yellow Urine Appearance Clear Urine pH 7.0 Ur Specific Flushing 1.010 Urine Protein Negative Urine Glucose (UA) Negative Urine Ketones Negative Urine Blood Negative Urine Nitrite Negative Urine Bilirubin Negative Urine Urobilinogen 0.2 Ur Leukocyte Esterase 1+ A Urine RBC 0-2 Urine WBC 5-10 A Ur Squamous Epith Cells Few Urine Bacteria Few A Ethyl Alcohol SARS-CoV-2 (PCR) POC Troponin I 06/10/24 06/10/24 23:15 23:11 WBC 9.93 RBC 4.16 Hgb 10.7 L Hct 33.6 MCV 81 MCH 26 MCHC 32 RDW Coeff of Ronda 14.7 Plt Count 505 H Neut % (Auto) 54.1 Lymph % (Auto) 37.4 Mcmullen % (Auto) 5.8 Eos % (Auto) 1.9 Baso % (Auto) 0.7 Neut # (Auto) 5.37 Lymph # (Auto) 3.71 H Mcmullen # (Auto) 0.60 Eos # (Auto) 0.19 Baso # (Auto) 0.07 Abs Immat Gran (auto) 0.01 Imm/Tot Granulo (auto) 0.1 Sodium 135 Potassium 3.2 L Chloride 103 Carbon Dioxide 21 Anion Gap 11 BUN 14 Creatinine 0.7 Estimated Creat Clear 43.30 Estimated GFR 93 Glucose 115 Calcium 8.9 Magnesium 2.0 Total Bilirubin 0.7 AST 22 ALT 15 Alkaline Phosphatase 80 C-Reactive Protein < 0.5 L Total Protein 6.7 Albumin 4.2 TSH Urine Color Urine Appearance Urine pH Ur Specific Flushing Urine Protein Urine Glucose (UA) Urine Ketones Urine Blood Urine Nitrite Urine Bilirubin Urine Urobilinogen Ur Leukocyte Esterase Urine RBC Urine WBC Ur Squamous Epith Cells Urine Bacteria Ethyl Alcohol 0.02 SARS-CoV-2 (PCR) Negative SARS-CoV-2 POC Troponin I 0.00 L Preliminary micro results at discharge 06/11/24 01:03 Urine Culture - Preliminary Urine,Clean Catch Culture in Progress Imaging CT scan - head: Attestation: I have reviewed the pertinent imaging results. Radiologist's impression: No CT evidence of acute intracranial hemorrhage, territorial infarct, hydrocephalus, or mass effect. Brain parenchymal volume is grossly within normal limits for patient`s stated age. Prominent right parietal soft tissue hematoma without associated calvarial fracture. Paranasal sinuses and mastoid air cells are grossly well ventilated. IMPRESSION: 1. No acute intracranial abnormality. 2. Prominent right parietal scalp hematoma without underlying calvarial fracture CT cervical spine: Attestation: I have reviewed the pertinent imaging results. Radiologist's impression: FINDINGS: Vertebrae: No acute fracture or suspicious osseous lesion. The cervical vertebral bodies maintain their normal heights with slight reversal of the cervical lordosis. Mild retrolisthesis is present at C6-C7. Discs and facet joints: Multilevel degenerative disc disease with multilevel disc space height loss and partial ankylosis across C5-C6. Disc bulge contributing to probable moderate canal stenosis at C6-C7. Multilevel facet arthropathy most prominent at C3-C4. Extraspinal findings: Prevertebral soft tissues, visualized airway, and visualized lungs are unremarkable. IMPRESSION: 1. No acute cervical spine fracture. 2. Multilevel spondylosis and degenerative disc disease, as above. Chest x-ray: Attestation: I have reviewed the pertinent imaging results. Radiologist's impression: Cardiovasculature and mediastinum: Heart size is normal. Unremarkable mediastinum. Lungs and pleural spaces: Lungs are clear. No sign of infiltrate or mass. No sign of pleural effusion. No pneumothorax. Bones and soft tissues: No significant findings. IMPRESSION: No acute cardiopulmonary abnormality. CTA head: Attestation: I have reviewed the pertinent imaging results. Radiologist's impression: INDINGS: There is minor intracranial atherosclerotic disease. There is normal opacification of the intracranial vasculature. There is no large vessel occlusion. No aneurysm is identified. IMPRESSION: No acute intracranial abnormality at CTA. CTA neck: Attestation: I have reviewed the pertinent imaging results. Radiologist's impression: There is minor carotid atherosclerosis. There is no significant carotid artery stenosis or dissection. There is no significant vertebral artery stenosis or dissection. The soft tissues of the neck are within normal limits. The cervical spine is in normal alignment. Degenerative changes are noted in the cervical spine. The C5-6 vertebrae are fused. IMPRESSION: No significant carotid or vertebral artery stenosis or dissection. CTA chest: Attestation: I have reviewed the pertinent imaging results. Radiologist's impression: CARDIOVASCULAR: Diagnostic quality: Contrast opacification of the pulmonary arterial circulation is adequate for assessment of pulmonary embolism. Study is not significantly limited by respiratory motion artifact. Pulmonary arteries: No filling defects to suggest pulmonary embolism. Not enlarged. Heart: No interventricular septal deviation. Normal in size. Mild coronary artery calcification. No significant valvular calcification. Pericardium: No pericardial effusion. Thoracic aorta: Minimal calcification. Normal cervical branching. REMAINING CHEST: Medical devices: None. Thyroid: Normal. Lymph nodes: No supraclavicular, axillary, mediastinal, or hilar lymphadenopathy. Other mediastinal structures: No significant abnormality. Lung parenchyma: Moderate biapical pleural-parenchymal scarring. Airways: No significant abnormality. Pleura: No significant abnormality. Chest wall: No significant abnormality. Upper abdomen: Likely sludge within the gallbladder. Musculoskeletal: Mild degenerative changes of the visualized spine. Impression: No acute pulmonary embolism. Discharge Plan Discharge Disposition: Home, Self-Care Date of Admission: 06/11/24 02:25 Attending Provider on Discharge: Emili Heck Primary Care Provider: Fani Martínez Condition: Improved Anticipated Discharge Date/Time: 06/11/24 15:00 Discharge Medications: Continued alfalfa 250 mg tablet 250 mg PO QDAY zinc sulfate [Orazinc] 50 mg zinc (220 mg) capsule 50 mg PO DAILY cholecalciferol (vitamin D3) 10 mcg (400 unit) capsule 10 mcg PO DAILY vitamin B complex Capsule 1 cap PO DAILY Discharge Orders: Discharge Order (Routine); Ordered 06/11/24 Ordered By: Emili Heck Patient Education: Syncope (GEN), Concussion (GEN) Additional Instructions: You will need further outpatient follow up with your PCP for ongoing work up syncope. Follow-up concussion. You are discharged with a Ziopatch. Follow instructions to turn this in. Activity Level: Activity as Tolerated and No strenuous activity Activity Detail: In setting of acute concussion Discharge Diet: Regular Follow Up Appointments: Fani Martínez CNP [Primary Care Provider] - 06/20/24 12:30 pm ([facility] for post hospital follow-up.) Forms: [email or web address] Instructions Discharge Comments: ZIOPATCH AT DISCHARGE PLEASE
--- NOTE | 2024-06-11 13:15 | PC.NURSE ---
End of shift report: Patient feeling well today. Denies n/v, headache, shortness of breath, dizziness. Able to ambulate independent in room. Fluids discontinued. Tolerating a regular diet. Telemetry showing NSR. Had Chest CT today. Waiting on ECHO. Plan is to DC with Zio patch on after ECHO and follow up with PCP outpatient. Voiding without difficulty. Neuro assessment within normal limits. at bedside with patient. PIV patent and intact. Bruise on right head has gotten smaller.
== END 2024-06-11 17:55 | disposition home or self-care (01) ==
LOC: ED 06-11 02:07 → MEDSURG 06-11 02:26
PROVIDERS: Admitting Provider Student in an Organized Health Care Education/Training Program; Emergency Provider Family Medicine; PCP Nurse Practitioner Family; Visit Provider Student in an Organized Health Care Education/Training Program
DX: R55 Syncope and collapse (principal); S06.0XAA Concussion with loss of consciousness status unknown, initial encounter; E87.6 Hypokalemia; S00.03XA Contusion of scalp, initial encounter; R11.10 Vomiting, unspecified; D64.9 Anemia, unspecified; R53.83 Other fatigue; M54.9 Dorsalgia, unspecified; R42 Dizziness and giddiness; R00.2 Palpitations; F10.90 Alcohol use, unspecified, uncomplicated; J32.9 Chronic sinusitis, unspecified; M47.897 Other spondylosis, lumbosacral region; R51.9 Headache, unspecified
CPT/HCPCS: 36415; 70450; 70496; 70498; 71045; 71275; 72125; 80053; 81001; 82077; 83735; 84443; 84484; 85018; 85025; 86140; 87086; 87635; 93005; 93246; 93306; 96361; 96374; 97161; 99284; 99285; 99291; G0378; A9270; G0390; J2405; J7030; Q9967

== ENCOUNTER 2024-06-20 12:54 | Outpatient (CLI) | payer MEDICARE, BC, SELFPAY | END 2024-06-20 12:55 | disposition home or self-care (01) | LOC: LKVREF 12:55 | PROVIDERS: PCP Nurse Practitioner Family; Visit Provider Nurse Practitioner Family | DX: E87.6 Hypokalemia (principal) | CPT/HCPCS: 84132 ==